=== PATIENT | male | born 1980 | race Two or more races ===

== ENCOUNTER 2022-08-22 09:58 | Emergency (ER) | payer BC ==
[~2022-08-22] VITALS: Ht 180.3 cm; Wt 84.0 kg
[2022-08-22] MEDS ORDERED: KETOROLAC 60MG/2ML VIAL IM ONE (11:15)
[2022-08-22] MEDS ORDERED: LIDOCAINE 5% PATCH TOP SCH (11:15)
[2022-08-22] MEDS ORDERED: IBUP-2029 MT (11:32)
[2022-08-22] MEDS ORDERED: LIDO700A15 TP (11:33)
[2022-08-22 11:40] VITALS: BP 123/78
== END 2022-08-22 11:41 | disposition home or self-care (01) ==
LOC: ER 09:58
DX: M54.50 Low back pain, unspecified (principal); Z98.890 Other specified postprocedural states
CPT/HCPCS: 96372; 99283; J1885